=== PATIENT | female | born 1995 | race Two or more races ===

== ENCOUNTER 2018-10-15 15:29 | Emergency (ER) | payer MEDICAID ==
[~2018-10-15] VITALS: Ht 154.9 cm; Wt 59.6 kg
[2018-10-15] MEDS ORDERED: PREN-3 PO (15:50)
[2018-10-15] MEDS ORDERED: ACETAMINOPHEN 325 MG TABLET ONE (15:55)
--- NOTE | 2018-10-15 15:58 | NUR ---
PT AMBULATORY TO ROOM. COMPLAINING OF RLQ ABD PAIN, RIGHT FLANK PAIN, CRAMPING, PRESSURE, AND SPOTTING IN THE MORNING. STATES SHE IS 11 WEEKS . STATES SHE VOMITTED ONCE YESTERDAY. NADN. PT STATES HER PAIN IS 8/10 AT THIS TIME. PT STATES SHE IS VOIDING EVERY 5-10 MIN. CALL LIGHT IN REACH. MONITOR IN PLACE. PT RESTING ON GURNEY. PA AT BEDSIDE UPDATING PT ON POC.
[2018-10-15] MEDS ORDERED: ACETAMINOPHEN 325 MG TABLET PO ONE (16:00)
[2018-10-15 16:07] LABS: BASOPHILS # (AUTO) 0.05 x10^3/uL (0-0.1); BASOPHILS % (AUTO) 1 % (0-1); EOSINOPHILS # (AUTO) 0.01 x10^3/uL (0-0.4); EOSINOPHILS % (AUTO) 0 % (1-7); LYMPHOCYTES # (AUTO) 1.76 x10^3/uL (1-3.4); LYMPHOCYTES % (AUTO) 18 % (22-44); MD NO; MEAN CORPUSCULAR HEMOGLOBIN 33.2 pg (27.0-34.8); MEAN CORPUSCULAR HGB CONC 33.8 g/dL (32.4-35.8); MEAN CORPUSCULAR VOLUME 98.5 fL (80-100); MEAN PLATELET VOLUME 9.2 fL (7.4-10.4); MONOCYTES # (AUTO) 0.37 x10^3/uL (0.2-0.8); MONOCYTES % (AUTO) 4 % (2-9); NEUTROPHILS # (AUTO) 7.79 x10^3/uL (1.8-6.8); NEUTROPHILS % (AUTO) 78 % (42-75); PLATELET COUNT 213 x10^3/uL (130-400); RED BLOOD COUNT 4.14 x10^6/uL (3.82-5.3); RED CELL DISTRIBUTION WIDTH 12.8 % (9.6-15.2)
[2018-10-15 16:16] LABS: ALANINE AMINOTRANSFERASE 12 U/L (12-78); ALBUMIN 3.5 g/dL (3.4-5.0); ANION GAP 5 mmol/L (5-15); CALCIUM 8.8 mg/dL (8.5-10.1); CHLORIDE 107 mmol/L (98-107); CREATININE 0.58 mg/dL (0.55-1.02)
--- NOTE | 2018-10-15 16:21 | NUR ---
PT BACK FROM US AT THIS TIME.
--- NOTE | 2018-10-15 16:28 | NUR ---
PT AMBULATORY TO BATHROOM TO PROVIDE URINE SAMPLE.
[2018-10-15 16:34] LABS: ALKALINE PHOSPHATASE 21 U/L (45-117); BILIRUBIN,TOTAL 0.7 mg/dL (0.2-1.0); TOTAL PROTEIN 6.6 g/dL (6.4-8.2)
[2018-10-15 17:04] LABS: MICROSCOPIC NOT IND
[2018-10-15 17:17] LABS: CULTURE INDICATED? NO
[2018-10-15 17:25] VITALS: BP 97/46
--- NOTE | 2018-10-15 17:26 | NUR ---
PT RESTING ON GURNY. LEIGH. CALL LIGHT IN REACH. PT STATES SHE HAS BEEN UPDATED BY ON POC. STATES SHE IS GOING TO D/C.
--- NOTE | 2018-10-15 18:03 | NUR ---
CARE FOR DC ONLY PROVIDED. PT WITH NO IV TO DC. REVIEWED DC INSTRUCTIONS WITH PT, UNDERSTANDING VERBALIZED. PT LEFT AMB, GAIT STEADY.
== END 2018-10-15 18:06 | disposition home or self-care (01) ==
LOC: ED 17:12
DX: O20.0 Threatened abortion (principal); R10.32 Left lower quadrant pain; R10.11 Right upper quadrant pain; Z3A.12 12 weeks gestation of pregnancy
CPT/HCPCS: 36415; 76801; 80053; 81003; 84702; 85025; 86901; 99284

== ENCOUNTER 2019-04-10 10:50 | Inpatient (IN) | payer MEDICAID ==
[~2019-04-10] VITALS: Ht 154.9 cm; Wt 64.5 kg
[~2019-04-10 10:50] MED LIST: PREN-3 PO
[2019-04-10] MEDS ORDERED: D5%-LACTATED RINGERS 1,000 ML IV SCH (10:59)
[2019-04-10] MEDS ORDERED: LACTATED RINGERS 1,000 ML IV SCH (10:59)
[2019-04-10] MEDS ORDERED: OXYTOCIN 30U/ 0.9% NaCL 500ML 500 ML IV ONE (10:59)
[2019-04-10] MEDS ORDERED: TERBUTALINE 1 MG/ML, 1ML IVPush PRN (11:00)
[2019-04-10] MEDS ORDERED: FENTANYL PF 100 MCG/2ML IV PRN (11:00)
[2019-04-10] MEDS ORDERED: TERBUTALINE 1 MG/ML, 1ML SQ PRN (11:00)
[2019-04-10] MEDS ORDERED: ONDANSETRON 2MG/ML, 2ML IVPush PRN (11:00)
[2019-04-10] MEDS ORDERED: NEWBORN KIT ONE (11:07)
[2019-04-10] MEDS ORDERED: LIDOCAINE 1%, 20ML ONE (11:07)
[2019-04-10] MEDS ORDERED: OXYTOCIN 30U/ 0.9% NaCL 500ML 0 ML ONE (11:08)
[2019-04-10] MEDS ORDERED: MISOPROSTOL 200 MCG TABLET ONE (11:08)
[2019-04-10] MEDS ORDERED: FENTANYL PF 100 MCG/2ML ONE ×2 (11:08→12:31)
[2019-04-10] MEDS: FENTANYL PF 100 MCG/2ML IVPush PRN ×2 (11:11→12:37)
[2019-04-10 12:08] LABS: BASOPHILS # (AUTO) 0.03 x10^3/uL (0-0.1); BASOPHILS % (AUTO) 0 % (0-1); EOSINOPHILS # (AUTO) 0.13 x10^3/uL (0-0.4); EOSINOPHILS % (AUTO) 1 % (1-7); LYMPHOCYTES # (AUTO) 1.36 x10^3/uL (1-3.4); LYMPHOCYTES % (AUTO) 11 % (22-44); MD NO; MEAN CORPUSCULAR HEMOGLOBIN 32.5 pg (27.0-34.8); MEAN CORPUSCULAR HGB CONC 33.2 g/dL (32.4-35.8); MEAN CORPUSCULAR VOLUME 98.1 fL (80-100); MEAN PLATELET VOLUME 10.5 fL (7.4-10.4); MONOCYTES # (AUTO) 0.35 x10^3/uL (0.2-0.8); MONOCYTES % (AUTO) 3 % (2-9); NEUTROPHILS # (AUTO) 10.42 x10^3/uL (1.8-6.8); NEUTROPHILS % (AUTO) 85 % (42-75); PLATELET COUNT 289 x10^3/uL (130-400); RED BLOOD COUNT 3.94 x10^6/uL (3.82-5.3); RED CELL DISTRIBUTION WIDTH 13.1 % (9.6-15.2)
[2019-04-10] MEDS ORDERED: ACETAMINOPHEN 325 MG TABLET PO PRN ×2 (14:00)
[2019-04-10] MEDS ORDERED: ONDANSETRON 2MG/ML, 2ML IV PRN (14:00)
[2019-04-10] MEDS ORDERED: MISOPROSTOL 200 MCG TABLET PR PRN (14:00)
[2019-04-10] MEDS ORDERED: OXYTOCIN 10 UNITS/ML, 1ML IM PRN (14:00)
[2019-04-10] MEDS ORDERED: SIMETHICONE 80 MG CHEW TAB PO PRN (14:00)
[2019-04-10] MEDS ORDERED: METOCLOPRAMIDE 5 MG/ML, 2ML IV PRN (14:00)
[2019-04-10] MEDS ORDERED: OXYcodone/APAP 5/325MG TABLET PO PRN (14:00)
[2019-04-10] MEDS ORDERED: IBUPROFEN 600 MG TABLET ONE (14:37)
[2019-04-10] MEDS ORDERED: HYDROcodone/APAP 5/325 TABLET ONE (14:37)
[2019-04-10] MEDS ORDERED: OXYTOCIN 30U/ 0.9% NaCL 500ML 500 ML ONE (14:37)
[2019-04-10] MEDS: OXYTOCIN 30U/ 0.9% NaCL 500ML 500 ML IV SCH ×2 (14:41→23:31)
[2019-04-10] MEDS: IBUPROFEN 600 MG TABLET PO PRN ×2 (14:41→20:42)
[2019-04-10 15:00] VITALS: BP 100/61
[2019-04-10] MEDS ORDERED: HYDROcodone/APAP 5/325 TABLET PO ONE (15:30)
[2019-04-10] MEDS: DOCUSATE 100 MG CAPSULE PO PRN (19:18)
[2019-04-10] MEDS: OXYcodone/APAP 5/325MG TABLET PO PRN (19:20)
[2019-04-10 20:30] VITALS: BP 101/63
[2019-04-10 23:21] VITALS: BP 103/69
[2019-04-11] MEDS: IBUPROFEN 600 MG TABLET PO PRN ×3 (02:46→16:23)
[2019-04-11 04:15] VITALS: BP 92/57
[2019-04-11] MEDS: OXYcodone/APAP 5/325MG TABLET PO PRN ×2 (04:22→14:10)
[2019-04-11 04:33] LABS: BASOPHILS # (AUTO) 0.01 x10^3/uL (0-0.1); BASOPHILS % (AUTO) 0 % (0-1); EOSINOPHILS # (AUTO) 0.18 x10^3/uL (0-0.4); EOSINOPHILS % (AUTO) 2 % (1-7); LYMPHOCYTES # (AUTO) 2.66 x10^3/uL (1-3.4); LYMPHOCYTES % (AUTO) 24 % (22-44); MD NO; MEAN CORPUSCULAR HEMOGLOBIN 32.5 pg (27.0-34.8); MEAN CORPUSCULAR VOLUME 98.5 fL (80-100); MEAN PLATELET VOLUME 9.8 fL (7.4-10.4); MONOCYTES # (AUTO) 0.71 x10^3/uL (0.2-0.8); MONOCYTES % (AUTO) 7 % (2-9); NEUTROPHILS # (AUTO) 7.35 x10^3/uL (1.8-6.8); NEUTROPHILS % (AUTO) 67 % (42-75); PLATELET COUNT 268 x10^3/uL (130-400); RED BLOOD COUNT 3.76 x10^6/uL (3.82-5.3); RED CELL DISTRIBUTION WIDTH 13.3 % (9.6-15.2)
[2019-04-11] MEDS ORDERED: PRENATAL VIT/IRON/FA 1 EACH TABLET PO SCH (09:00)
[2019-04-11 09:05] VITALS: BP 88/52
[2019-04-11] MEDS: OXYTOCIN 30U/ 0.9% NaCL 500ML 500 ML IV SCH (09:31)
[2019-04-11] MEDS: DOCUSATE 100 MG CAPSULE PO PRN (10:55)
[2019-04-11] MEDS ORDERED: IBUP-1222 PO (14:59)
== END 2019-04-11 17:00 | disposition home or self-care (01) | DRG 807 ==
LOC: LDOP 10:50 → LDIP 11:10 → 2NW 14:57
PROVIDERS: ADMIT Obstetrics & Gynecology; ATTEND Obstetrics & Gynecology
PROC: 10E0XZZ Delivery of Products of Conception, External Approach (ICD-10-PCS; principal; 2019-04-10)
PROC: 10907ZC Drainage of Amniotic Fluid, Therapeutic from Products of Conception, Via Natural or Artificial Opening (ICD-10-PCS; 2019-04-10)
DX: O80 Encounter for full-term uncomplicated delivery (principal); Z37.0 Single live birth; Z3A.37 37 weeks gestation of pregnancy
CPT/HCPCS: 36415; 85025; 86850; 86900; G0378; J3010; J2590; J7120